=== PATIENT | male | born 2000 | race Caucasian/White ===

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

== ENCOUNTER 2022-09-29 20:16 | Emergency (ER) | payer OTHER, SELFPAY ==
[2022-09-29 20:17] VITALS: BP 182/106; PULSE 114; RESP 18; TEMP 36.6; O2SAT 100; BMI 31.8
--- NOTE | 2022-09-29 21:24 | EDS_ITS ---
HPI History of Present Illness Chief Complaint: Palpitations Detail of Chief Complaint: Accelerated heart rate. No chest pain. No hemoptysis. Informant: patient and family Onset/Context/Timing Onset: Today and Hours Activity at onset: sudden Timing: Continuous Current Severity: Mild Maximum Severity: Mild Worsened By: Nothing Relieved By: Nothing Associated Symptoms: Positive for Nausea and Vomiting Narrative Narrative: 22-year-old male no seen past medical history. Had nausea and vomiting 5-6 times a day. He was just sitting at home the night of 7 PM and had decelerated heart rate. Said rapid breathing. No chest pain. No hemoptysis. No leg pain or swelling. No history of cardiac disease. No prior cardiac or chest surgery. No history of DVT or PE or risk factors. Prior Similar Symptoms: No Recent Illness/Hospitalization: No CVD Risk Factors: Negative for Hypertension, Diabetes or Hypercholesterolemia PE Risk Factors: Negative for Recent Travel/Surgery, Recent Immobilization, Prior DVT or PE, Cancer or OCP + Smoking + >/=35 PFSH PFSH Medical History no medical history no medical history Home Medications NK 09/29/22 [History Last Taken Unknown] Allergy/AdvReac Type Severity Reaction Status Date / Time sertraline [From Zoloft] Allergy Unknown Verified 09/29/22 20:16 Family History Mother Diabetes Rheumatoid arthritis Surgical History History of umbilical hernia repair Social History Smoking Status: Current every day smoker tobacco type: cigars and e-cigarettes ROS ROS ED ROS Narrative Nausea and vomiting today. Accelerated heart rate. Review of Systems ROS Unobtainable: Denies due to encephalopathy Constitutional Constitutional ED: Denies chills or fever(s) Eyes Eyes: Reports none ENT ENT ED: Denies ear pain Cardiovascular Cardiovascular: Reports as per HPI, palpitations and racing heartbeat; Denies chest pain Respiratory/Chest Respiratory/Chest: Denies cough or dyspnea Gastrointestinal Gastrointestinal: Reports abdominal pain Genitourinary Genitourinary ED: Denies dysuria or hematuria Musculoskeletal Musculoskeletal: Denies arthralgias Integumentary Denies abscess Neurologic Neurologic: Denies headache(s) Psychiatric Psychiatric: Denies anxiety Endocrine Endocrinology: Denies cold intolerance Hematologic/Lymphatic Hematologic/Lymphatic: Denies easy bleeding Allergic/Immunologic Allergic/Immunologic ED: Denies mouth swelling EXAM Physical Exam Narrative Exam Narrative: Well-appearing 20-year-old male. Vital signs stable afebrile. Heart rate is around 112. He does not look septic times he is in no distress. Pulse ox 100% on room air no hypoxia. H EENT exam unremarkable. Neck nontender. No thyromegaly. No lymphadenopathy. Lungs clear to auscultation bilaterally. Heart tachycardic rate about 112 no murmur. Chest wall nontender. Abdomen soft nontender. Moving all 4 extremities. Equal symmetrical radial pulse. Calves are nontender without edema or cords. He is awake and alert with no focal motor deficits. Const Vital Signs: 09/29/22 20:17 09/29/22 21:13 09/29/22 21:46 Temperature 97.8 F Temperature Source Temporal Pulse Rate 114 H Respiratory Rate 18 Respiratory Effort Normal Non-Labored Blood Pressure 182/106 H Blood Pressure Mean 131 Pulse Ox 100 97 Oxygen Delivery Method Room Air 09/29/22 21:46 Temperature Temperature Source Pulse Rate 100 Respiratory Rate 16 Respiratory Effort Blood Pressure 161/97 H Blood Pressure Mean 118 Pulse Ox 97 Oxygen Delivery Method Room Air Positive well nourished and well developed; Negative for obese, cachectic, contractures or unkempt General Appearance ED: well developed and NAD; Negative for unkempt, cachectic, contractures or pallor Nutritional Appearance: Negative for cachectic or obese HEENT Reports moist mucous membranes; Denies dry mucous membranes normocephalic and atraumatic; Negative for trauma or tenderness Mouth ED: No dry mucous membranes Mouth: No dry mucous membranes Eyes PERRL and EOMs intact bilaterally General Eye ED: Negative for pale conjunctiva or scleral icterus Neck no lymphadenopathy, supple and no JVD General: Negative for tenderness Chest Wall inspection of chest normal and palpation of chest normal Chest: Negative for tenderness Resp normal respiratory effort and clear to auscultation bilaterally Effort and Inspection: Negative for respiratory distress Auscultation: Negative for rales, rhonchi or wheezes Cardio regular rhythm, S1 normal heart sound, S2 normal heart sound and no murmurs; Negative for regular rate Rate: tachycardic Rhythm: Negative for abnormal rhythm Peripheral Pulses: pulses 2+ throughout GI normal to inspection, nondistended, normoactive bowel sounds, soft to palpation, non-tender, non-distended and no masses Auscultation: Negative for hyperactive bowel sounds Palpation: Negative for splenomegaly Back/Spine no CVA tenderness and no thoracic nor lumbar tenderness General Back: Negative for CVA tenderness Extremity normal to inspection General Extremety ED: Negative for edema, pulses abnormal or tenderness General Extremity: Negative for edema or pulses abnormal Neuro oriented x3, CN's II-XII intact bilaterally and no sensory deficits noted Sensorium / Orientation: awake, alert, oriented to person, oriented to place and oriented to time; Negative for confused, lethargic or stuporous Motor Exam: strength 5/5 throughout Psych mental status grossly normal Appearance: Negative for unkempt Attitude: No agitated Mood & Affect: Negative for depressed, anxious or tearful Skin no rashes or lesions noted and no wounds General Skin Exam: Negative for jaundice or pallor Rashes: No rashes noted Trauma: Negative for abrasion MDM MDM MDM Narrative Medical decision making narrative: 22-year-old had nausea and vomiting earlier today and in tachycardia night sitting at home. No chest pain. No DVT or PE history or risk factors. No cardiac history. Undergo cardiac work-up. To receive IV fluids and be further evaluated. Nurse went in to start the IV and draw the labs and the patient did not want the IV and refused blood draw. Repeat exam is doing well at 10:30 PM. The signs are stable. Current heart rates in the 80s. Patient be discharged home. Follow-up outpatient if he is not improving or has continued symptoms. Or return. History & Record Review Discussion w/independent historian: Patient Radiography Chest X-Ray - ED: 1 View, Read by ED Physician, Heart, Lungs, Mediastinum, Bony Structures and No Acute Disease Diagnostic Testing: Chest x-ray, portable, single view shows no acute abnormality. Normal cardiac silhouette. Normal mediastinum. Lungs normal. No infiltrates. No fluid. Interpreted by myself. Rhythm Strip Rhythm Strip: Sinus Tach Rate: 111 Ectopy: PVC(s) EKG Initial EKG: Attestation: I personally reviewed and interpreted this EKG as follows: Interpretation: No Acute Injury Pattern and Sinus Tachycardia Comments: Sinus tachycardia rate of 111. No acute signs of DC or ischemia. No dysrhythmia. Occasional PVC. Prior EKG tracings: not available for review Prior: No Prior Discharge Plan Triage Chief Complaint: Palpitations ED Provider: Frantz Pelletier Dx/Rx/DC Orders Clinical Impression: Heart palpitations Instructions: ED Palpitations Prescriptions: No Action NK Primary Care Provider: Care Physician,No Primary Referrals: Shawnee Lanza MD [Med Staff - Active Staff] - As Needed Care Physician,No Primary [Primary Care Provider] - Activity Restrictions/Additional Instructions: Plenty of fluids and rest. Follow-up with a local primary care provider if not improving. Return if fe eling worse. Disposition Disposition: Home, Self Care
[2022-09-29 21:46] VITALS: BP 161/97; PULSE 100; RESP 16; O2SAT 97
--- NOTE | 2022-09-29 22:14 | ED.RN ---
2200: Patient refusing IV and labs. Dr. Pelletier notified.
--- NOTE | 2022-09-29 22:15 | RAD_ITS ---
INDICATION: chest pain EXAMINATION/TECHNIQUE: X-RAY - XR Chest 1 View COMPARISON: None. FINDINGS: The lungs are clear. The cardiomediastinal silhouette is unremarkable. No pleural effusion or pneumothorax. No acute osseous abnormalities. RAD/Chest 1 View (Portable) IMPRESSION: No acute radiographic abnormalities. Electronically Signed: James Barraza MD at 22:57 EDT ,
[2022-09-29 22:46] VITALS: BP 167/96; PULSE 88; RESP 16; O2SAT 97
== END 2022-09-29 22:49 | disposition home or self-care (01) ==
PROVIDERS: Emergency Provider Emergency Medicine; Visit Provider Emergency Medicine
DX: R00.2 Palpitations (principal); F17.290 Nicotine dependence, other tobacco product, uncomplicated
CPT/HCPCS: 71045; 93005; 99283